=== PATIENT | female | born 1975 ===

== ENCOUNTER 2022-03-18 11:31 | Outpatient (CLI) | payer OTHER | END 2022-03-18 11:33 | disposition home or self-care (01) | LOC: LAB 11:31 | DX: E04.2 Nontoxic multinodular goiter (principal); Z84.89 Family history of other specified conditions ==

== ENCOUNTER → 2022-03-18 | Outpatient (CLI) | payer OTHER | END | disposition home or self-care (01) | LOC: SONOGRAMA 10:06 | PROVIDERS: ATTEND Pathology Anatomic Pathology & Clinical Pathology | DX: E04.2 Nontoxic multinodular goiter (principal); D44.0 Neoplasm of uncertain behavior of thyroid gland ==